=== PATIENT | male | born 1975 | race Caucasian/White ===

== ENCOUNTER 2016-07-28 20:29 | Emergency (ER) | payer OTHER ==
[~2016-07-28] VITALS: Ht 175.3 cm; Wt 63.5 kg
[~2016-07-28 20:29] MED LIST: FLOMAX(MONOGRA0.4 MG PO; PERCOCET 325 MG1 TA2 PO; TORADOL10 MG PO
[2016-07-28 20:56] VITALS: BP 108/70
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
[2016-07-28] MEDS ORDERED: CYCLOBENZAPRINE5 M2 PO (21:37)
[2016-07-28] MEDS ORDERED: PERCOCET 5-3251 EACH PO (21:37)
== END 2016-07-28 21:45 ==
LOC: ERH 20:29
DX: S39.012A Strain of muscle, fascia and tendon of lower back, initial encounter (principal); X50.9XXA Other and unspecified overexertion or strenuous movements or postures, initial encounter; Y93.H9 Activity, other involving exterior property and land maintenance, building and construction; Y92.017 Garden or yard in single-family (private) house as the place of occurrence of the external cause

== ENCOUNTER 2016-08-20 22:57 | Emergency (ER) | payer OTHER ==
[~2016-08-20 22:57] MED LIST changes: +CYCLOBENZAPRINE5 M2 PO; +PERCOCET 5-3251 EACH PO
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
[2016-08-21] MEDS ORDERED: PERCOCET 5-3251 EACH PO (01:10)
[2016-08-21 01:16] VITALS: BP 126/74
== END 2016-08-21 01:17 ==
LOC: ERH 22:57
DX: S01.81XA Laceration without foreign body of other part of head, initial encounter (principal); Y04.8XXA Assault by other bodily force, initial encounter; Y92.9 Unspecified place or not applicable; Y93.9 Activity, unspecified